=== PATIENT | female | born 1945 | race Hispanic/Latino ===

== ENCOUNTER 2020-09-29 09:24 | Observation (INO) | payer MEDICARE ==
--- NOTE | 2020-09-29 10:25 | Emergency Department Report ---
HPI - General Chief Complaint: Weakness Time Seen by Provider: 09/29/20 10:15 - HPI HPI: This is a 75-year-old female presents to the emergency department via EMS from home with the complaint of generalized weakness and fatigue, with some questionable altered mental status. The patient was diagnosed with shingles of the left side of her face on September 08. She was admitted to [facility] for a few days since it involved her eye and her ear. She has had a few visits to her primary care physician since that time with complaints of generally feeling ill, but they were told that it may take months for her to get back to normal. During her admission to [facility], the patient was also evaluated for a possible pacemaker, and was wearing a Holter monitor, secondary to some issues with hypotension and bradycardia. At that time they decided that it was not prudent to do a pacemaker. The patient has been told not to take any significant pain medications so she has just been taking Tylenol. The patient ambulates with a walker and sometimes uses a scooter to get around. However, usually she is awake, alert, energetic. She woke up this morning with increased weakness and fatigue. The patient says she does not know who called for EMS for her. She complains of a generalized headache. She denies any fever, chest umesh n, shortness of breath. ED Past Medical Hx - Past Medical History Previous Medical History?: Yes Additional medical history: hypotension - Social History Smoking Status: Never Smoker Substance Use Type: None ED Review of Systems ROS: Stated complaint: AMS/GENERAL WEAKNESS/SEPSIS Other details as noted in HPI Comment: Unobtainable due to pts medical conditions Constitutional: weakness Physical Exam - Physical Exam Vital Signs: Vital Signs 09/29/20 09:55 Temperature 97.5 F L Pulse Rate 64 Respiratory 11 L Rate Blood Pressure 117/66 O2 Sat by Pulse 98 Oximetry Physical Exam: GENERAL: The patient is ill-appearing. HENT: Normocephalic. Atraumatic. Patient has moist mucous membranes. EYES: Extraocular motions are intact. Pupils equal reactive to light bilaterally. No nystagmus. NECK: Supple. Trachea is midline. CHEST/LUNGS: Clear to auscultation. There is no respiratory distress noted. HEART/CARDIOVASCULAR: Regular. There is no tachycardia. There is no murmur. ABDOMEN: Abdomen is soft, nontender. Patient has normal bowel sounds. There is no abdominal distention. SKIN: Skin is warm and dry. NEURO: Patient is sleepy but easily arousable. Once awake she is AAO x3. No dysarthria or aphasia. Patient has bilateral upper extremity weakness with mild to moderate drift. MUSCULOSKELETAL: There is no tenderness or deformity. ED Course Vital Signs 09/29/20 09:55 Temperature 97.5 F L Pulse Rate 64 Respiratory 11 L Rate Blood Pressure 117/66 O2 Sat by Pulse 98 Oximetry ED Medical Decision Making - Lab Data Result diagrams: 09/29/20 10:43 09/29/20 10:43 - EKG Data -: EKG Interpreted by Nh EKG shows normal: sinus rhythm, axis (Left axis deviation), intervals, QRS complexes (Low voltage, Q waves to the septal leads), ST-T waves Rate: normal - EKG Data When compared to previous EKG there are: previous EKG unavailable Interpretation: other (Sinus rhythm at 66 bpm, left axis deviation, low voltage, Q waves in the septal leads. No ST elevation PA.) - Radiology Data Radiology results: report reviewed CT HEAD WITHOUT CONTRAST INDICATION / CLINICAL INFORMATION: Weakness. TECHNIQUE: All CT scans at this location are performed using CT dose reduction for ALARA by means of automated exposure control. COMPARISON: None available. FINDINGS: HEMORRHAGE: No evidence of intracranial hemorrhage or extra-axial fluid collection. EXTRA-AXIAL SPACES: Cortical sulci and sylvian fissures are within normal limits for the patient's age of 75 years. Basilar cisterns have an unremarkable appearance. VENTRICULAR SYSTEM: The third and lateral ventricles are within normal limits for size and configuration. CEREBRAL PARENCHYMA: Extensive periventricular, subcortical and deep white matter lucency is observed. This is probably secondary to advanced microvascular ischemic change. More focal areas of decreased brain parenchymal attenuation are likely secondary to remote small deep infarctions in a gangliocapsular distribution bilaterally. There is no indication of recent infarction. MIDLINE SHIFT OR HERNIATION: There is no mass effect. CEREBELLUM / BRAINSTEM: A low-attenuation focus in the left side of the david likely represents the sequelae of remote small deep pontine infarction. Brainstem has an otherwise unremarkable appearance. No cerebellar abnormalities are identified. MIDLINE STRUCTURES:Pituitary gland has an unremarkable appearance. No abnormalities are seen in the pineal region. INTRACRANIAL VESSELS:Calcified atherosclerotic plaque is present along the course of the cavernous segments of both internal carotid arteries. Similar findings are seen at the distal vertebral arteries. ORBITS: Status post bilateral cataract surgery. No additional abnormality. SOFT TISSUES of HEAD: No significant abnormality. CALVARIUM: Evaluation of bone windows reveals no abnormalities. PARANASAL SINUSES / MASTOID AIR CELLS: Paranasal sinuses are free from inflammatory mucosal disease. Mastoid air cells are normally pneumatized. IMPRESSION: 1. Advanced microvascular ischemic change. 2. Multiple remote small deep infarctions. 3. No acute intracranial abnormality. - Medical Decision Making This patient presents to the emergency department with some increased fatigue and generalized weakness. There is some questionable altered mental status. The patient is very sleepy but is easily arousable. Once awake she is able to answer orientation questions appropriately. She does display some bilateral upper extremity weakness but this may be effort based. For the same reason it is difficult to assess patient for any facial asymmetry. She has a recent history of herpes zoster of the face causing her left-sided facial pain and left ear pain. Patient was given some Tylenol and then later a dose of IV analgesia for this postherpetic neuralgia. CT scan of the head without contrast does not show any hemorrhage, large vessel occlusion, or any other acute process. The patient's labs have been mostly unremarkable except for a mild urinary tract infection. Telemedicine neurology was contacted and consulted and their recommendations are in the chart. The patient was given an NIH stroke scale of 5. They agree the patient is not a TPA candidate. They feel is more consistent with encephalopathy. They recommend admission for MRI and further evaluation. Patient was accepted for admission by the hospitalist, Dr. De Oliveira. Critical Care Time: No Critical care attestation.: If time is entered above; I have spent that time in minutes in the direct care of this critically ill patient, excluding procedure time. ED Disposition Clinical Impression: Encephalopathy, Weakness, Post herpetic neuralgia Disposition: OP ADMIT IP TO THIS HOSP Is pt being admited?: Yes Condition: Fair Time of Disposition: 13:11
[2020-09-29 10:54] LABS: Basophils # (Auto) 0.1 K/mm3 (0.0-0.1); Basophils % (Auto) 0.8 % (0.0-1.8); Eosinophils # (Auto) 0.2 K/mm3 (0.0-0.4); Eosinophils % (Auto) 2.1 % (0.0-4.3); Hematocrit 38.6 % (30.3-42.9); Hemoglobin 12.9 gm/dl (10.1-14.3); Lymphocytes # (Auto) 1.1 K/mm3 (1.2-5.4); Lymphocytes % (Auto) 13.7 % (13.4-35.0); Mean Corpuscular HGB Conc 34 % (30-34); Mean Corpuscular Volume 94 fl (79-97); Monocytes # (Auto) 0.6 K/mm3 (0.0-0.8); Monocytes % (Auto) 7.6 % (0.0-7.3); Platelet Count 187 K/mm3 (140-440); Red Blood Count 4.11 M/mm3 (3.65-5.03); Red Cell Distribution Width 16.2 % (13.2-15.2)
[2020-09-29 11:06] LABS: INR 1.05 (0.87-1.13)
[2020-09-29 11:17] LABS: Alanine Aminotransferase 6 units/L (7-56); Albumin 3.1 g/dL (3.9-5); BUN/Creatinine Ratio 14; Blood Urea Nitrogen 15 mg/dL (7-17); Calcium 9.3 mg/dL (8.4-10.2); Hemolysis Index 13
--- NOTE | 2020-09-29 11:24 | Cat Scan Report ---
CT HEAD WITHOUT CONTRAST INDICATION / CLINICAL INFORMATION: Weakness. TECHNIQUE: All CT scans at this location are performed using CT dose reduction for ALARA by means of automated e xposure control. COMPARISON: None available. FINDINGS: HEMORRHAGE: No evidence of intracranial hemorrhage or extra-axial fluid collection. EXTRA-AXIAL SPACES: Cortical sulci and sylvian fissures are within normal limits for the patient's ag e of 75 years. Basilar cisterns have an unremarkable appearance. VENTRICULAR SYSTEM: The third and lateral ventricles are within normal limits for size and configurat ion. CEREBRAL PARENCHYMA: Extensive periventricular, subcortical and deep white matter lucency is observed . This is probably secondary to advanced microvascular ischemic change. More focal areas of decreased brain parenchymal attenuation are likely secondary to remote small deep infarctions in a gangliocaps ular distribution bilaterally. There is no indication of recent infarction. MIDLINE SHIFT OR HERNIATION: There is no mass effect. CEREBELLUM / BRAINSTEM: A low-attenuation focus in the left side of the david likely represents the se quelae of remote small deep pontine infarction. Brainstem has an otherwise unremarkable appearance. N o cerebellar abnormalities are identified. MIDLINE STRUCTURES:Pituitary gland has an unremarkable appearance. No abnormalities are seen in the p ineal region. INTRACRANIAL VESSELS:Calcified atherosclerotic plaque is present along the course of the cavernous se gments of both internal carotid arteries. Similar findings are seen at the distal vertebral arteries. ORBITS: Status post bilateral cataract surgery. No additional abnormality. SOFT TISSUES of HEAD: No significant abnormality. CALVARIUM: Evaluation of bone windows reveals no abnormalities. PARANASAL SINUSES / MASTOID AIR CELLS: Paranasal sinuses are free from inflammatory mucosal disease. Mastoid air cells are normally pneumatized. IMPRESSION: 1. Advanced microvascular ischemic change. 2. Multiple remote small deep infarctions. 3. No acute intracranial abnormality. Signer Name: Jayce Lay MD Signed: 09/29/2020 11:19 AM Workstation Name: [id number]
[2020-09-29] MEDS ORDERED: SODIUM CHLORIDE 0.9% 1000 ML 1,000 ML IV ONE (11:26)
[2020-09-29] MEDS ORDERED: ACETAMINOPHEN 325 MG TAB PO ONE (11:26)
--- NOTE | 2020-09-29 12:35 | Consultation ---
History of Present Illness - Reason for Consult Consult date: 09/29/20 - History of Present Illness [facility] Consult Note # Demographics Consult Type: General Neurology Patient Location: Emergency Room First Name: Delores Last Name: Rosalio Date of : 1945 Age: 75 Gender: Female Time of Initial Page ( Time): 09/29/2020, 11:57 Time of Return Call ( Time): 09/29/2020, 11:58 # HPI History: 75yo woman who had recent zoster infection. She has had hypotension and bradycardia recently also. She had decreased responsiveness and slurred speech this morning on awakening. # Scores Time of exam and NIHSS ( Time): 09/29/2020, 12:16 Level of Consciousness 1a: [1] = Not alert; but arousable by minor stim LOC Questions 1b: [0] = Answers both questions correctly LOC Commands 1c: [0] = Performs both tasks correctly Best Gaze 2: [0] = Normal Visual 3: [0] = No visual loss Facial Palsy 4: [0] = Normal symmetrical movements Motor Arm Left 5a: [0] = No drift Motor Arm Right 5b: [0] = No drift Motor Leg Left 6a: [2] = Some effort against gravity Motor Leg Right 6b: [2] = Some effort against gravity Limb Ataxia 7: [0] = Absent Sensory 8: [0] = Normal Best Language 9: [0] = No aphasia Dysarthria 10: [0] = Normal Extinction and Inattention 11: [0] = No abnormality NIHSS Total: 5 # Exam Vitals: vital signs reviewed SBP: 120 DBP: 57 # Assessment Impression: 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 # Plan Labs: Ammonia B12 liver function tests TSH ua Imaging: (urgency: routine): MRI Brain with AND without contrast Diagnostic Test: EEG lumbar puncture: cell count, protein, glucose, as well as VZV PCR and HSV PCR Other: telemetry monitoring I have discussed my recommendations with the referring provider Disposition: admit Medications and Allergies Allergies Allergy/AdvReac Type Severity Reaction Status Date / Time No Known Allergies Allergy Unverified 09/29/20 09:44 Active Meds: Active Medications Sodium Chloride (Nacl 0.9% 1000 Ml) 1,000 mls @ 125 mls/hr IV ONCE ONE Stop: 09/29/20 19:25 Exam - Constitutional Vitals: Temp Pulse Resp BP Pulse Ox 97.5 F L 66 14 104/52 97 09/29/20 09:55 09/29/20 11:00 09/29/20 11:00 09/29/20 11:00 09/29/20 11:00 Results - Labs CBC & Chem 7: 09/29/20 10:43 09/29/20 10:43 Labs: Abnormal lab results 09/29/20 09/29/20 Range/Units 10:43 10:43 RDW 16.2 H (13.2-15.2) % [place] % (Auto) 7.6 H (0.0-7.3) % Lymph # (Auto) 1.1 L (1.2-5.4) K/mm3 Seg Neutrophils % 75.8 H (40.0-70.0) % Chloride 109.7 H (98-107) mmol/L Carbon Dioxide 18 L (22-30) mmol/L ALT 6 L (7-56) units/L Total Creatine Kinase 29 L (30-135) units/L Total Protein 5.9 L (6.3-8.2) g/dL Albumin 3.1 L (3.9-5) g/dL
[2020-09-29] MEDS ORDERED: MORPHINE 4 MG/1 ML INJ IV ONE (13:39)
[2020-09-29 14:03] LABS: Bilirubin,Urine NEG (Negative); Blood,Urine NEG (Negative); Color,Urine Amber (Yellow); Hyaline Casts,Urine 3 /LPF; Mucus,Urine FEW /HPF; Urobilinogen,Urine < 2.0 mg/dL (<2.0)
[2020-09-29] MEDS ORDERED: cefTRIAXone/NS 1 GM/50 ML 1 GM/50 ML BAG IV ONE (14:11)
--- NOTE | 2020-09-29 18:05 | Electrocardiograph Report ---
[facility] Test Date: 2020-09-29 Test Time: 11:22:48 Pat Name: MARLENA TRONCOSO Department: Room: [facility] Gender: F [employer] K[employer] Runner: HATTIE : 1945 Requested By: EKATERINA COLLIER Order Number: [id number] Reading MD: Pankaj Deng Measurements Intervals [place] Rate: 66 P: 45 IN: 164 QRS: -36 QRSD: 88 T: 31 QT: 459 QTc: 480 Interpretive Statements Sinus rhythm Left axis deviation Low voltage, precordial leads Consider anterior infarct No previous ECG available for comparison Electronically Signed On 09-29-2020 18:05:09 EDT by Pankaj Deng
--- NOTE | 2020-09-29 20:22 | History and Physical Report ---
History of Present Illness Date of examination: 09/29/20 Date of admission: 09/29/20 13:11 Chief complaint: Altered sensorium for 1 day History of present illness: 75-year-old female with recent history of shingles involving the left side of the face and requiring admission at [facility] comes in for continued pain on the left side of the face. Patient also had increased weakness and fatigue and altered sensorium because of which the daughter brought the patient to the hospital. Poor historian. No weakness in any of the 4 extremities. Main complaint is altered sensorium and generalized weakness. - Past Medical History Previous Medical History?: Yes Additional medical history: hypertension -Surgical history N/a -Family history hypertension - Social History Smoking Status: Never Smoker Substance Use Type: None Review of Systems ROS: Constitutional no weight loss or weight gain no fever or chills HEENT left facial pain present. Neck no neck stiffness no lymph gland enlargement Chest and lungs no shortness of breath cough or wheezing CVS no chest pain no diaphoresis no palpitations GI no nausea no vomiting no diarrhea Genitourinary system no dysuria no flank pain Musculoskeletal system no muscle pains no joint pains [employer] generalized weakness. Skin no rash no itching Psychiatric no depression no homicidal or suicidal tendencies Hematologic no lymphedema or bruising Endocrine no polydipsia no polyuria no cold intolerance no heat intolerance Medications and Allergies Allergies Allergy/AdvReac Type Severity Reaction Status Date / Time No Known Allergies Allergy Verified 09/29/20 20:34 Exam - Constitutional Vitals: Temp Pulse Resp BP Pulse Ox 97.5 F L 101 H 17 117/72 93 09/29/20 09:55 09/29/20 18:00 09/29/20 18:00 09/29/20 18:00 09/29/20 18:00 General appearance: Present: no acute distress, well-nourished - EENT Eyes: Present: PERRL ENT: hearing intact, clear oral mucosa, other (Left facial erythema present.) - Neck Neck: Present: supple, normal ROM - Respiratory Respiratory effort: normal Respiratory: bilateral: CTA - Cardiovascular Heart Sounds: Present: S1 & S2. Absent: rub, click - Extremities Extremities: pulses symmetrical, No edema Peripheral Pulses: within normal limits - Abdominal General gastrointestinal: Present: soft, non-tender, non-distended, normal bowel sounds Female genitourinary: Present: normal - Integumentary Integumentary: Present: clear, warm, dry - Musculoskeletal Musculoskeletal: gait normal, strength equal bilaterally - Psychiatric Psychiatric: appropriate mood/affect, intact judgment & insight - Neurologic Neurologic: CNII-XII intact, moves all extremities, other (No focal deficits.) HEART Score - HEART Score Troponin: Troponin T < 0.010 ng/mL (0.00-0.029) 09/29/20 10:43 Results - Labs CBC & Chem 7: 09/29/20 10:43 09/29/20 10:43 Labs: Laboratory Last Values WBC 7.8 K/mm3 (4.5-11.0) 09/29/20 10:43 RBC 4.11 M/mm3 (3.65-5.03) 09/29/20 10:43 Hgb 12.9 gm/dl (10.1-14.3) 09/29/20 10:43 Hct 38.6 % (30.3-42.9) 09/29/20 10:43 MCV 94 fl (79-97) 09/29/20 10:43 MCH 31 pg (28-32) 09/29/20 10:43 MCHC 34 % (30-34) 09/29/20 10:43 RDW 16.2 % (13.2-15.2) H 09/29/20 10:43 Plt Count 187 K/mm3 (140-440) 09/29/20 10:43 Lymph % (Auto) 13.7 % (13.4-35.0) 09/29/20 10:43 [place] % (Auto) 7.6 % (0.0-7.3) H 09/29/20 10:43 Eos % (Auto) 2.1 % (0.0-4.3) 09/29/20 10:43 Baso % (Auto) 0.8 % (0.0-1.8) 09/29/20 10:43 Lymph # (Auto) 1.1 K/mm3 (1.2-5.4) L 09/29/20 10:43 [place] # (Auto) 0.6 K/mm3 (0.0-0.8) 09/29/20 10:43 Eos # (Auto) 0.2 K/mm3 (0.0-0.4) 09/29/20 10:43 Baso # (Auto) 0.1 K/mm3 (0.0-0.1) 09/29/20 10:43 Seg Neutrophils % 75.8 % (40.0-70.0) H 09/29/20 10:43 Seg Neutrophils # 5.9 K/mm3 (1.8-7.7) 09/29/20 10:43 PT 14.2 Sec. (12.2-14.9) 09/29/20 10:43 INR 1.05 (0.87-1.13) 09/29/20 10:43 Sodium 143 mmol/L (137-145) 09/29/20 10:43 Potassium 4.0 mmol/L (3.6-5.0) 09/29/20 10:43 Chloride 109.7 mmol/L (98-107) H 09/29/20 10:43 Carbon Dioxide 18 mmol/L (22-30) L 09/29/20 10:43 Anion Gap 19 mmol/L 09/29/20 10:43 BUN 15 mg/dL (7-17) 09/29/20 10:43 Creatinine 1.1 mg/dL (0.6-1.2) 09/29/20 10:43 Estimated GFR 49 ml/min 09/29/20 10:43 BUN/Creatinine Ratio 14 % 09/29/20 10:43 Glucose 79 mg/dL (65-100) 09/29/20 10:43 Calcium 9.3 mg/dL (8.4-10.2) 09/29/20 10:43 Total Bilirubin 0.20 mg/dL (0.1-1.2) 09/29/20 10:43 AST 12 units/L (5-40) 09/29/20 10:43 ALT 6 units/L (7-56) L 09/29/20 10:43 Alkaline Phosphatase 83 units/L (35-129) 09/29/20 10:43 Ammonia 23.0 umol/L (25-60) L 09/29/20 17:23 Total Creatine Kinase 29 units/L (30-135) L 09/29/20 10:43 Troponin T < 0.010 ng/mL (0.00-0.029) 09/29/20 10:43 Total Protein 5.9 g/dL (6.3-8.2) L 09/29/20 10:43 Albumin 3.1 g/dL (3.9-5) L 09/29/20 10:43 Albumin/Globulin Ratio 1.1 % 09/29/20 10:43 TSH 1.440 mlU/mL (0.270-4.200) 09/29/20 10:43 Urine Color [place] (Yellow) 09/29/20 13:35 Urine Turbidity Clear (Clear) 09/29/20 13:35 Urine pH 5.0 (5.0-7.0) 09/29/20 13:35 Ur Specific [place] 1.028 (1.003-1.030) 09/29/20 13:35 Urine Protein 30 mg/dl mg/dL (Negative) 09/29/20 13:35 Urine Glucose (UA) Neg mg/dL (Negative) 09/29/20 13:35 Urine Ketones Tr mg/dL (Negative) 09/29/20 13:35 Urine Blood Neg (Negative) 09/29/20 13:35 Urine Nitrite Neg (Negative) 09/29/20 13:35 Urine Bilirubin Neg (Negative) 09/29/20 13:35 Urine Urobilinogen < 2.0 mg/dL (<2.0) 09/29/20 13:35 Ur Leukocyte Esterase Mod (Negative) 09/29/20 13:35 Urine WBC (Auto) 18.0 /HPF (0.0-6.0) H 09/29/20 13:35 Urine RBC (Auto) 1.0 /HPF (0.0-6.0) 09/29/20 13:35 U Epithel Cells (Auto) 1.0 /HPF (0-13.0) 09/29/20 13:35 Hyaline Casts 3 /LPF 09/29/20 13:35 Urine Mucus Few /HPF 09/29/20 13:35 - Imaging and Cardiology EKG: report reviewed Imaging and Cardiology: CT head Advanced microvascular ischemic change Assessment and Plan Advance Directives: Yes (Full code) VTE prophylaxis?: Chemical Plan of care discussed with patient/family: Yes - Patient Problems (1) Acute encephalopathy Current Visit: Yes Status: Acute Plan to address problem: Etiology unclear IV fluids MRI brain Discharge home tomorrow if MRI negative (2) Post herpetic neuralgia Current Visit: Yes Status: Acute Plan to address problem: Lyrica 75 twice daily (3) Hypertension Current Visit: Yes Status: Chronic Qualifiers: Hypertension type: primary hypertension Qualified Code(s): I10 - Essential (primary) hypertension Plan to address problem: Continue antihypertensives (4) Debility, unspecified Current Visit: Yes Status: Acute Plan to address problem: PT and OT consult requested (5) DVT prophylaxis Current Visit: Yes Status: Acute Plan to address problem: On heparin and GI prophylaxis
[2020-09-29] MEDS ORDERED: ACETAMINOPHEN 325 MG TAB PO PRN (20:26)
[2020-09-29] MEDS: HYDROmorphone 1 MG/1 ML INJ IV PRN (21:07)
[2020-09-29] MEDS: oxyCODONE /ACETAMINOPHEN 5-325MG TAB PO PRN (22:59)
[2020-09-30] MEDS: HYDROmorphone 1 MG/1 ML INJ IV PRN ×5 (01:01→17:29)
[2020-09-30] MEDS: HEPARIN 5,000 UNIT/1 ML VIAL SUB-Q SCH ×3 (01:07→21:41)
[2020-09-30] MEDS: METOCLOPRAMIDE 10 MG/2 ML INJ IV PRN (09:33)
--- NOTE | 2020-09-30 12:10 | Progress Note ---
Assessment and Plan - Patient Problems (1) Acute encephalopathy Current Visit: Yes Status: Acute Plan to address problem: Supportive care, MRI brain, (2) Postherpetic neuralgia Current Visit: Yes Status: Acute Plan to address problem: Pain control, supportive care. Steroid therapy. (3) Encephalopathy Current Visit: Yes Status: Acute Plan to address problem: Verbal prompting, verbal redirection, supportive care, CT head, patient MRI brain is pending, (4) DVT prophylaxis Current Visit: Yes Status: Acute Plan to address problem: SCD to bilateral lower extremities while in bed, patient is ambulatory History Interval history: 75 YO Female with Post Herpetic Neuralgia, Obesity, Vascular Dementia, Cerebral Atherosclerosis, Encephalopathy, who is currently pending MRI of the brain. No reported nursing events. Patient reports continued pain to her left face and left eye. Patient denies headache. Hospitalist Physical - Constitutional Vitals: Temp Pulse Resp BP Pulse Ox 98.3 F 110 H 20 117/66 94 09/30/20 11:57 09/30/20 11:57 09/30/20 11:57 09/30/20 11:57 09/30/20 11:57 General appearance: Present: no acute distress, well-nourished - EENT Eyes: Present: PERRL, EOM intact - Neck Neck: Present: supple - Respiratory Respiratory effort: normal Respiratory: bilateral: CTA - Cardiovascular Rhythm: regular Heart Sounds: Present: S1 & S2 - Extremities Extremities: no ischemia Peripheral Pulses: within normal limits - Abdominal General gastrointestinal: soft, non-tender, non-distended - Integumentary Integumentary: Present: clear, dry - Psychiatric Psychiatric: cooperative - Neurologic Neurologic: CNII-XII intact HEART Score - HEART Score Troponin: Troponin T < 0.010 ng/mL (0.00-0.029) 09/29/20 10:43 Results - Labs CBC & Chem 7: 09/30/20 19:57 09/30/20 19:57 Labs: Laboratory Last Values WBC 7.8 K/mm3 (4.5-11.0) 09/29/20 10:43 RBC 4.11 M/mm3 (3.65-5.03) 09/29/20 10:43 Hgb 12.9 gm/dl (10.1-14.3) 09/29/20 10:43 Hct 38.6 % (30.3-42.9) 09/29/20 10:43 MCV 94 fl (79-97) 09/29/20 10:43 MCH 31 pg (28-32) 09/29/20 10:43 MCHC 34 % (30-34) 09/29/20 10:43 RDW 16.2 % (13.2-15.2) H 09/29/20 10:43 Plt Count 187 K/mm3 (140-440) 09/29/20 10:43 Lymph % (Auto) 13.7 % (13.4-35.0) 09/29/20 10:43 [place] % (Auto) 7.6 % (0.0-7.3) H 09/29/20 10:43 Eos % (Auto) 2.1 % (0.0-4.3) 09/29/20 10:43 Baso % (Auto) 0.8 % (0.0-1.8) 09/29/20 10:43 Lymph # (Auto) 1.1 K/mm3 (1.2-5.4) L 09/29/20 10:43 [place] # (Auto) 0.6 K/mm3 (0.0-0.8) 09/29/20 10:43 Eos # (Auto) 0.2 K/mm3 (0.0-0.4) 09/29/20 10:43 Baso # (Auto) 0.1 K/mm3 (0.0-0.1) 09/29/20 10:43 Seg Neutrophils % 75.8 % (40.0-70.0) H 09/29/20 10:43 Seg Neutrophils # 5.9 K/mm3 (1.8-7.7) 09/29/20 10:43 PT 14.2 Sec. (12.2-14.9) 09/29/20 10:43 INR 1.05 (0.87-1.13) 09/29/20 10:43 Sodium 143 mmol/L (137-145) 09/29/20 10:43 Potassium 4.0 mmol/L (3.6-5.0) 09/29/20 10:43 Chloride 109.7 mmol/L (98-107) H 09/29/20 10:43 Carbon Dioxide 18 mmol/L (22-30) L 09/29/20 10:43 Anion Gap 19 mmol/L 09/29/20 10:43 BUN 15 mg/dL (7-17) 09/29/20 10:43 Creatinine 1.1 mg/dL (0.6-1.2) 09/29/20 10:43 Estimated GFR 49 ml/min 09/29/20 10:43 BUN/Creatinine Ratio 14 % 09/29/20 10:43 Glucose 79 mg/dL (65-100) 09/29/20 10:43 Calcium 9.3 mg/dL (8.4-10.2) 09/29/20 10:43 Total Bilirubin 0.20 mg/dL (0.1-1.2) 09/29/20 10:43 AST 12 units/L (5-40) 09/29/20 10:43 ALT 6 units/L (7-56) L 09/29/20 10:43 Alkaline Phosphatase 83 units/L (35-129) 09/29/20 10:43 Ammonia 23.0 umol/L (25-60) L 09/29/20 17:23 Total Creatine Kinase 29 units/L (30-135) L 09/29/20 10:43 Troponin T < 0.010 ng/mL (0.00-0.029) 09/29/20 10:43 Total Protein 5.9 g/dL (6.3-8.2) L 09/29/20 10:43 Albumin 3.1 g/dL (3.9-5) L 09/29/20 10:43 Albumin/Globulin Ratio 1.1 % 09/29/20 10:43 TSH 1.440 mlU/mL (0.270-4.200) 09/29/20 10:43 Urine Color Terrie (Yellow) 09/29/20 13:35 Urine Turbidity Clear (Clear) 09/29/20 13:35 Urine pH 5.0 (5.0-7.0) 09/29/20 13:35 Ur Specific [place] 1.028 (1.003-1.030) 09/29/20 13:35 Urine Protein 30 mg/dl mg/dL (Negative) 09/29/20 13:35 Urine Glucose (UA) Neg mg/dL (Negative) 09/29/20 13:35 Urine Ketones Tr mg/dL (Negative) 09/29/20 13:35 Urine Blood Neg (Negative) 09/29/20 13:35 Urine Nitrite Neg (Negative) 09/29/20 13:35 Urine Bilirubin Neg (Negative) 09/29/20 13:35 Urine Urobilinogen < 2.0 mg/dL (<2.0) 09/29/20 13:35 Ur Leukocyte Esterase Mod (Negative) 09/29/20 13:35 Urine WBC (Auto) 18.0 /HPF (0.0-6.0) H 09/29/20 13:35 Urine RBC (Auto) 1.0 /HPF (0.0-6.0) 09/29/20 13:35 U Epithel Cells (Auto) 1.0 /HPF (0-13.0) 09/29/20 13:35 Hyaline Casts 3 /LPF 09/29/20 13:35 Urine Mucus Few /HPF 09/29/20 13:35 [place]/IV: Voiding Method External Female Catheter Active Medications - Current Medications Current Medications: Generic Name Dose Route Start Last Admin Trade Name Freq PRN Reason Stop Dose Admin Acetaminophen 650 mg 09/29/20 20:26 Acetaminophen 325 Mg Tab PO Q4H PRN Pain MILD(1-3)/Fever >100.5/GARCIA Heparin Sodium (Porcine) 5,000 unit 09/29/20 22:00 09/30/20 09:30 Heparin 5,000 Unit/1 Ml Vial SUB-Q 5,000 unit Q12HR MCKENNA Administration Hydromorphone HCl 0.5 mg 09/29/20 20:26 09/30/20 09:30 Hydromorphone 1 Mg/1 Ml Inj IV 0.5 mg Q3H PRN Administration Pain , Severe (7-10) Sodium Chloride 1,000 mls @ 100 mls/hr 09/29/20 20:30 Nacl 0.9% 1000 Ml IV DIRECT MCKENNA Metoclopramide HCl 10 mg 09/29/20 20:26 09/30/20 09:33 Metoclopramide 10 Mg/2 Ml Inj IV 10 mg Q6H PRN Administration Nausea And Vomiting Ondansetron HCl 4 mg 09/29/20 20:26 Ondansetron 4 Mg/2 Ml Inj IV Q3H PRN Nausea And Vomiting Oxycodone/Acetaminophen 1 tab 09/29/20 20:26 09/29/20 22:59 Oxycodone /Acetaminophen 5-325mg Tab PO 1 tab Q6H PRN Administration Pain, Moderate (4-6) Sodium Chloride 10 ml 09/29/20 22:00 09/30/20 09:30 Sodium Chloride 0.9% 10 Ml Flush Syringe IV 10 ml BID MCKENNA Administration Sodium Chloride 10 ml 09/29/20 20:26 Sodium Chloride 0.9% 10 Ml Flush Syringe IV PRN PRN LINE FLUSH
[2020-09-30] MEDS: SODIUM CHLORIDE 0.9% 1000 ML 1,000 ML IV SCH (14:29)
[2020-09-30] MEDS ORDERED: diphenhydrAMINE 50 MG/ML VIAL IV ONE (17:30)
[2020-09-30 20:37] LABS: Alanine Aminotransferase 6 units/L (7-56); Albumin 3.1 g/dL (3.9-5); Blood Urea Nitrogen 8 mg/dL (7-17); Calcium 8.1 mg/dL (8.4-10.2); Hemolysis Index 12
[2020-09-30 20:54] LABS: Basophils % (Auto) 0.8 % (0.0-1.8); Eosinophils # (Auto) 0.2 K/mm3 (0.0-0.4); Eosinophils % (Auto) 3.8 % (0.0-4.3); Hematocrit 40.7 % (30.3-42.9); Lymphocytes # (Auto) 0.9 K/mm3 (1.2-5.4); Lymphocytes % (Auto) 17.1 % (13.4-35.0); Mean Corpuscular HGB Conc 32 % (30-34); Mean Corpuscular Volume 98 fl (79-97); Monocytes # (Auto) 0.5 K/mm3 (0.0-0.8); Platelet Count 167 K/mm3 (140-440); Red Blood Count 4.17 M/mm3 (3.65-5.03); Red Cell Distribution Width 16.7 % (13.2-15.2)
[2020-09-30 21:06] LABS: BUN/Creatinine Ratio 11
[2020-09-30] MEDS: oxyCODONE /ACETAMINOPHEN 5-325MG TAB PO PRN (21:40)
[2020-09-30] MEDS: diphenhydrAMINE 50 MG/ML VIAL IV PRN (21:41)
[2020-10-01] MEDS: oxyCODONE /ACETAMINOPHEN 5-325MG TAB PO PRN ×3 (02:45→23:28)
[2020-10-01] MEDS: ONDANSETRON 4 MG/2 ML INJ IV PRN ×2 (05:47→15:31)
[2020-10-01] MEDS: HYDROmorphone 1 MG/1 ML INJ IV PRN ×3 (09:05→19:46)
[2020-10-01] MEDS: HEPARIN 5,000 UNIT/1 ML VIAL SUB-Q SCH ×2 (09:06→21:49)
[2020-10-01] MEDS: diphenhydrAMINE 50 MG/ML VIAL IV PRN (09:11)
--- NOTE | 2020-10-01 13:47 | Progress Note ---
Assessment and Plan - Patient Problems (1) Acute encephalopathy Current Visit: Yes Status: Acute Plan to address problem: Supportive care, MRI brain, (2) Postherpetic neuralgia Current Visit: Yes Status: Acute Plan to address problem: Pain control, supportive care. Steroid therapy. (3) Encephalopathy Current Visit: Yes Status: Acute Plan to address problem: Verbal prompting, verbal redirection, supportive care, CT head, patient MRI brain is pending, (4) DVT prophylaxis Current Visit: Yes Status: Acute Plan to address problem: SCD to bilateral lower extremities while in bed, patient is ambulatory History Interval history: 75 YO Female with Post Herpetic Neuralgia, Obesity, Vascular Dementia, Cerebral Atherosclerosis, Encephalopathy, who is currently pending MRI of the brain. No reported nursing events. Patient reports continued pain to her left face and left eye. Patient denies headache. Hospitalist Physical - Constitutional Vitals: Temp Pulse Resp BP Pulse Ox 98.9 F 90 20 170/76 95 10/01/20 10:59 10/01/20 10:59 10/01/20 10:59 10/01/20 10:59 10/01/20 11:00 General appearance: Present: no acute distress, well-nourished - EENT Eyes: Present: PERRL, EOM intact - Neck Neck: Present: supple - Respiratory Respiratory effort: normal Respiratory: bilateral: CTA - Cardiovascular Rhythm: regular Heart Sounds: Present: S1 & S2 - Extremities Extremities: no ischemia Peripheral Pulses: within normal limits - Abdominal General gastrointestinal: soft, non-tender, non-distended - Integumentary Integumentary: Present: clear, dry - Psychiatric Psychiatric: cooperative - Neurologic Neurologic: CNII-XII intact HEART Score - HEART Score Troponin: Troponin T < 0.010 ng/mL (0.00-0.029) 09/29/20 10:43 Results - Labs CBC & Chem 7: 09/30/20 19:57 09/30/20 19:57 Labs: Laboratory Last Values WBC 5.3 K/mm3 (4.5-11.0) 09/30/20 19:57 RBC 4.17 M/mm3 (3.65-5.03) 09/30/20 19:57 Hgb 13.0 gm/dl (10.1-14.3) 09/30/20 19:57 Hct 40.7 % (30.3-42.9) 09/30/20 19:57 MCV 98 fl (79-97) H 09/30/20 19:57 MCH 31 pg (28-32) 09/30/20 19:57 MCHC 32 % (30-34) 09/30/20 19:57 RDW 16.7 % (13.2-15.2) H 09/30/20 19:57 Plt Count 167 K/mm3 (140-440) 09/30/20 19:57 Lymph % (Auto) 17.1 % (13.4-35.0) 09/30/20 19:57 [place] % (Auto) 10.0 % (0.0-7.3) H 09/30/20 19:57 Eos % (Auto) 3.8 % (0.0-4.3) 09/30/20 19:57 Baso % (Auto) 0.8 % (0.0-1.8) 09/30/20 19:57 Lymph # (Auto) 0.9 K/mm3 (1.2-5.4) L 09/30/20 19:57 [place] # (Auto) 0.5 K/mm3 (0.0-0.8) 09/30/20 19:57 Eos # (Auto) 0.2 K/mm3 (0.0-0.4) 09/30/20 19:57 Baso # (Auto) 0.0 K/mm3 (0.0-0.1) 09/30/20 19:57 Seg Neutrophils % 68.3 % (40.0-70.0) 09/30/20 19:57 Seg Neutrophils # 3.6 K/mm3 (1.8-7.7) 09/30/20 19:57 PT 14.2 Sec. (12.2-14.9) 09/29/20 10:43 INR 1.05 (0.87-1.13) 09/29/20 10:43 Sodium 140 mmol/L (137-145) 09/30/20 19:57 Potassium 4.1 mmol/L (3.6-5.0) 09/30/20 19:57 Chloride 109.3 mmol/L (98-107) H 09/30/20 19:57 Carbon Dioxide 20 mmol/L (22-30) L 09/30/20 19:57 Anion Gap 15 mmol/L 09/30/20 19:57 BUN 8 mg/dL (7-17) 09/30/20 19:57 Creatinine 0.7 mg/dL (0.6-1.2) 09/30/20 19:57 Estimated GFR > 60 ml/min 09/30/20 19:57 BUN/Creatinine Ratio 11 % 09/30/20 19:57 Glucose 78 mg/dL (65-100) 09/30/20 19:57 Hemoglobin A1c 5.3 % (4-6) 09/30/20 19:57 Calcium 8.1 mg/dL (8.4-10.2) L 09/30/20 19:57 Total Bilirubin 0.30 mg/dL (0.1-1.2) 09/30/20 19:57 AST 16 units/L (5-40) 09/30/20 19:57 ALT 6 units/L (7-56) L 09/30/20 19:57 Alkaline Phosphatase 81 units/L (35-129) 09/30/20 19:57 Ammonia 23.0 umol/L (25-60) L 09/29/20 17:23 Total Creatine Kinase 29 units/L (30-135) L 09/29/20 10:43 Troponin T < 0.010 ng/mL (0.00-0.029) 09/29/20 10:43 Total Protein 5.9 g/dL (6.3-8.2) L 09/30/20 19:57 Albumin 3.1 g/dL (3.9-5) L 09/30/20 19:57 Albumin/Globulin Ratio 1.1 % 09/30/20 19:57 TSH 1.440 mlU/mL (0.270-4.200) 09/29/20 10:43 Urine Color [place] (Yellow) 09/29/20 13:35 Urine Turbidity Clear (Clear) 09/29/20 13:35 Urine pH 5.0 (5.0-7.0) 09/29/20 13:35 Ur Specific [place] 1.028 (1.003-1.030) 09/29/20 13:35 Urine Protein 30 mg/dl mg/dL (Negative) 09/29/20 13:35 Urine Glucose (UA) Neg mg/dL (Negative) 09/29/20 13:35 Urine Ketones Tr mg/dL (Negative) 09/29/20 13:35 Urine Blood Neg (Negative) 09/29/20 13:35 Urine Nitrite Neg (Negative) 09/29/20 13:35 Urine Bilirubin Neg (Negative) 09/29/20 13:35 Urine Urobilinogen < 2.0 mg/dL (<2.0) 09/29/20 13:35 Ur Leukocyte Esterase Mod (Negative) 09/29/20 13:35 Urine WBC (Auto) 18.0 /HPF (0.0-6.0) H 09/29/20 13:35 Urine RBC (Auto) 1.0 /HPF (0.0-6.0) 09/29/20 13:35 U Epithel Cells (Auto) 1.0 /HPF (0-13.0) 09/29/20 13:35 Hyaline Casts 3 /LPF 09/29/20 13:35 Urine Mucus Few /HPF 09/29/20 13:35 Microbiology: Microbiology 09/29/20 13:35 Urine,Clean Catch Urine Culture - Preliminary [place]/IV: Voiding Method External Female Catheter Active Medications - Current Medications Current Medications: Generic Name Dose Route Start Last Admin Trade Name Freq PRN Reason Stop Dose Admin Acetaminophen 650 mg 09/29/20 20:26 Acetaminophen 325 Mg Tab PO Q4H PRN Pain MILD(1-3)/Fever >100.5/GARCIA Diphenhydramine HCl 25 mg 09/30/20 21:24 10/01/20 09:11 Diphenhydramine 50 Mg/Ml Vial IV 25 mg Q6H PRN Administration Itching Heparin Sodium (Porcine) 5,000 unit 09/29/20 22:00 10/01/20 09:06 Heparin 5,000 Unit/1 Ml Vial SUB-Q 5,000 unit Q12HR MCKENNA Administration Hydromorphone HCl 0.5 mg 09/29/20 20:26 10/01/20 09:05 Hydromorphone 1 Mg/1 Ml Inj IV 0.5 mg Q3H PRN Administration Pain , Severe (7-10) Sodium Chloride 1,000 mls @ 100 mls/hr 09/29/20 20:30 09/30/20 14:29 Nacl 0.9% 1000 Ml IV 100 mls/hr DIRECT MCKENNA Administration Metoclopramide HCl 10 mg 09/29/20 20:26 09/30/20 09:33 Metoclopramide 10 Mg/2 Ml Inj IV 10 mg Q6H PRN Administration Nausea And Vomiting Ondansetron HCl 4 mg 09/29/20 20:26 10/01/20 05:47 Ondansetron 4 Mg/2 Ml Inj IV 4 mg Q3H PRN Administration Nausea And Vomiting Oxycodone/Acetaminophen 1 tab 09/29/20 20:26 10/01/20 12:49 Oxycodone /Acetaminophen 5-325mg Tab PO 1 tab Q6H PRN Administration Pain, Moderate (4-6) Sodium Chloride 10 ml 09/29/20 22:00 10/01/20 09:08 Sodium Chloride 0.9% 10 Ml Flush Syringe IV 10 ml BID MCKENNA Administration Sodium Chloride 10 ml 09/29/20 20:26 Sodium Chloride 0.9% 10 Ml Flush Syringe IV PRN PRN LINE FLUSH
[2020-10-01] MEDS: SODIUM CHLORIDE 0.9% 1000 ML 1,000 ML IV SCH (15:39)
[2020-10-02] MEDS: HYDROmorphone 1 MG/1 ML INJ IV PRN ×4 (02:25→18:36)
[2020-10-02] MEDS: ONDANSETRON 4 MG/2 ML INJ IV PRN ×2 (02:28→14:35)
--- NOTE | 2020-10-02 10:40 | Progress Note ---
Assessment and Plan Assessment and plan: (1) Acute encephalopathy Supportive care, MRI brain still pending. (2) Postherpetic neuralgia Pain control, supportive care. Steroid therapy. (3) deconditioning/debility Physical therapy evaluated the patient and recommends subacute rehab. (4) DVT prophylaxis SCD to bilateral lower extremities while in bed, patient is ambulatory History Interval history: No new issues overnight. Hospitalist Physical - Constitutional Vitals: Temp Pulse Resp BP Pulse Ox 98.0 F 83 18 146/80 92 10/02/20 05:47 10/02/20 05:47 10/02/20 05:47 10/02/20 05:47 10/02/20 05:47 General appearance: Present: no acute distress, well-nourished - EENT Eyes: Present: PERRL, EOM intact ENT: hearing intact, clear oral mucosa, dentition normal - Neck Neck: Present: supple, normal ROM - Respiratory Respiratory effort: normal Respiratory: bilateral: CTA - Cardiovascular Rhythm: regular Heart Sounds: Present: S1 & S2. Absent: gallop, rub - Extremities Extremities: no ischemia, No edema, Full ROM - Abdominal General gastrointestinal: soft, non-tender, non-distended, normal bowel sounds - Integumentary Integumentary: Present: clear, warm, dry - Neurologic Neurologic: CNII-XII intact, moves all extremities HEART Score - HEART Score Troponin: Troponin T < 0.010 ng/mL (0.00-0.029) 09/29/20 10:43 Results - Labs CBC & Chem 7: 09/30/20 19:57 09/30/20 19:57 Labs: Laboratory Last Values WBC 5.3 K/mm3 (4.5-11.0) 09/30/20 19:57 RBC 4.17 M/mm3 (3.65-5.03) 09/30/20 19:57 Hgb 13.0 gm/dl (10.1-14.3) 09/30/20 19:57 Hct 40.7 % (30.3-42.9) 09/30/20 19:57 MCV 98 fl (79-97) H 09/30/20 19:57 MCH 31 pg (28-32) 09/30/20 19:57 MCHC 32 % (30-34) 09/30/20 19:57 RDW 16.7 % (13.2-15.2) H 09/30/20 19:57 Plt Count 167 K/mm3 (140-440) 09/30/20 19:57 Lymph % (Auto) 17.1 % (13.4-35.0) 09/30/20 19:57 [place] % (Auto) 10.0 % (0.0-7.3) H 09/30/20 19:57 Eos % (Auto) 3.8 % (0.0-4.3) 09/30/20 19:57 Baso % (Auto) 0.8 % (0.0-1.8) 09/30/20 19:57 Lymph # (Auto) 0.9 K/mm3 (1.2-5.4) L 09/30/20 19:57 [place] # (Auto) 0.5 K/mm3 (0.0-0.8) 09/30/20 19:57 Eos # (Auto) 0.2 K/mm3 (0.0-0.4) 09/30/20 19:57 Baso # (Auto) 0.0 K/mm3 (0.0-0.1) 09/30/20 19:57 Seg Neutrophils % 68.3 % (40.0-70.0) 09/30/20 19:57 Seg Neutrophils # 3.6 K/mm3 (1.8-7.7) 09/30/20 19:57 PT 14.2 Sec. (12.2-14.9) 09/29/20 10:43 INR 1.05 (0.87-1.13) 09/29/20 10:43 Sodium 140 mmol/L (137-145) 09/30/20 19:57 Potassium 4.1 mmol/L (3.6-5.0) 09/30/20 19:57 Chloride 109.3 mmol/L (98-107) H 09/30/20 19:57 Carbon Dioxide 20 mmol/L (22-30) L 09/30/20 19:57 Anion Gap 15 mmol/L 09/30/20 19:57 BUN 8 mg/dL (7-17) 09/30/20 19:57 Creatinine 0.7 mg/dL (0.6-1.2) 09/30/20 19:57 Estimated GFR > 60 ml/min 09/30/20 19:57 BUN/Creatinine Ratio 11 % 09/30/20 19:57 Glucose 78 mg/dL (65-100) 09/30/20 19:57 Hemoglobin A1c 5.3 % (4-6) 09/30/20 19:57 Calcium 8.1 mg/dL (8.4-10.2) L 09/30/20 19:57 Total Bilirubin 0.30 mg/dL (0.1-1.2) 09/30/20 19:57 AST 16 units/L (5-40) 09/30/20 19:57 ALT 6 units/L (7-56) L 09/30/20 19:57 Alkaline Phosphatase 81 units/L (35-129) 09/30/20 19:57 Ammonia 23.0 umol/L (25-60) L 09/29/20 17:23 Total Creatine Kinase 29 units/L (30-135) L 09/29/20 10:43 Troponin T < 0.010 ng/mL (0.00-0.029) 09/29/20 10:43 Total Protein 5.9 g/dL (6.3-8.2) L 09/30/20 19:57 Albumin 3.1 g/dL (3.9-5) L 09/30/20 19:57 Albumin/Globulin Ratio 1.1 % 09/30/20 19:57 TSH 1.440 mlU/mL (0.270-4.200) 09/29/20 10:43 Urine Color [place] (Yellow) 09/29/20 13:35 Urine Turbidity Clear (Clear) 09/29/20 13:35 Urine pH 5.0 (5.0-7.0) 09/29/20 13:35 Ur Specific [place] 1.028 (1.003-1.030) 09/29/20 13:35 Urine Protein 30 mg/dl mg/dL (Negative) 09/29/20 13:35 Urine Glucose (UA) Neg mg/dL (Negative) 09/29/20 13:35 Urine Ketones Tr mg/dL (Negative) 09/29/20 13:35 Urine Blood Neg (Negative) 09/29/20 13:35 Urine Nitrite Neg (Negative) 09/29/20 13:35 Urine Bilirubin Neg (Negative) 09/29/20 13:35 Urine Urobilinogen < 2.0 mg/dL (<2.0) 09/29/20 13:35 Ur Leukocyte Esterase Mod (Negative) 09/29/20 13:35 Urine WBC (Auto) 18.0 /HPF (0.0-6.0) H 09/29/20 13:35 Urine RBC (Auto) 1.0 /HPF (0.0-6.0) 09/29/20 13:35 U Epithel Cells (Auto) 1.0 /HPF (0-13.0) 09/29/20 13:35 Hyaline Casts 3 /LPF 09/29/20 13:35 Urine Mucus Few /HPF 09/29/20 13:35 Microbiology: Microbiology 09/29/20 13:35 Urine,Clean Catch Urine Culture - Final [place]/IV: Voiding Method Toilet Active Medications - Current Medications Current Medications: Generic Name Dose Route Start Last Admin Trade Name Freq PRN Reason Stop Dose Admin Acetaminophen 650 mg 09/29/20 20:26 Acetaminophen 325 Mg Tab PO Q4H PRN Pain MILD(1-3)/Fever >100.5/GARCIA Diphenhydramine HCl 25 mg 09/30/20 21:24 10/01/20 09:11 Diphenhydramine 50 Mg/Ml Vial IV 25 mg Q6H PRN Administration Itching Heparin Sodium (Porcine) 5,000 unit 09/29/20 22:00 10/01/20 21:49 Heparin 5,000 Unit/1 Ml Vial SUB-Q 5,000 unit Q12HR MCKENNA Administration Hydromorphone HCl 0.5 mg 09/29/20 20:26 10/02/20 08:11 Hydromorphone 1 Mg/1 Ml Inj IV 0.5 mg Q3H PRN Administration Pain , Severe (7-10) Sodium Chloride 1,000 mls @ 100 mls/hr 09/29/20 20:30 10/02/20 02:25 Nacl 0.9% 1000 Ml IV Infused DIRECT MCKENNA Infusion Metoclopramide HCl 10 mg 09/29/20 20:26 09/30/20 09:33 Metoclopramide 10 Mg/2 Ml Inj IV 10 mg Q6H PRN Administration Nausea And Vomiting Ondansetron HCl 4 mg 09/29/20 20:26 10/02/20 02:28 Ondansetron 4 Mg/2 Ml Inj IV 4 mg Q3H PRN Administration Nausea And Vomiting Oxycodone/Acetaminophen 1 tab 09/29/20 20:26 10/01/20 23:28 Oxycodone /Acetaminophen 5-325mg Tab PO 1 tab Q6H PRN Administration Pain, Moderate (4-6) Prednisone 40 mg 10/02/20 10:00 Prednisone 20 Mg Tab PO 10/02/20 23:59 QDAY MCKENNA Sodium Chloride 10 ml 09/29/20 22:00 10/01/20 21:49 Sodium Chloride 0.9% 10 Ml Flush Syringe IV 10 ml BID MCKENNA Administration Sodium Chloride 10 ml 09/29/20 20:26 Sodium Chloride 0.9% 10 Ml Flush Syringe IV PRN PRN LINE FLUSH
[2020-10-02] MEDS: predniSONE 20 MG TAB PO SCH (11:16)
[2020-10-02] MEDS: HEPARIN 5,000 UNIT/1 ML VIAL SUB-Q SCH ×2 (11:16→21:48)
--- NOTE | 2020-10-02 12:15 | Magnetic Resonance Report ---
MRI BRAIN 10/02/2020 INDICATION / CLINICAL INFORMATION: severe debility, bilat.. leg weakness. TECHNIQUE: Multiplanar, multisequence MR images of the brain were obtained. COMPARISON: None available. FINDINGS: BRAIN / INTRACRANIAL CONTENTS: Unenhanced MR images of the brain demonstrate no evidence of acute abn ormality. Ventricles and sulci are normal in size and shape for a patient of this age. Extensive chronic appearing white matter T2 weighted hyperintensities are present scattered throughou t the cerebral hemispheric white matter, consistent with extensive chronic small vessel ischemic velazquez ge. There is no evidence of acute ischemic injury, hemorrhage, or mass. There are no abnormal extra-axial fluid collections. EXTRACRANIAL: Unremarkable CRANIOCERVICAL JUNCTION: No significant abnormality. VASCULAR FLOW-VOIDS: No significant abnormality. Incidental note is made of mucosal thickening in left mastoid air cells and middle ear. IMPRESSION: No acute abnormality. Extensive chronic white matter microangiopathic change. Signer Name: Binh Eldridge MD Signed: 10/02/2020 12:10 PM Workstation Name: [id number]
[2020-10-02] MEDS: SODIUM CHLORIDE 0.9% 1000 ML 1,000 ML IV SCH (18:39)
[2020-10-03] MEDS: HYDROmorphone 1 MG/1 ML INJ IV PRN ×3 (05:48→22:11)
[2020-10-03] MEDS ORDERED: hydrALAZINE 20 MG/1 ML INJ IV ONE (05:52)
[2020-10-03] MEDS: METOCLOPRAMIDE 10 MG/2 ML INJ IV PRN (07:28)
[2020-10-03] MEDS: HEPARIN 5,000 UNIT/1 ML VIAL SUB-Q SCH ×2 (11:08→22:10)
[2020-10-03] MEDS: predniSONE 20 MG TAB PO SCH (11:08)
--- NOTE | 2020-10-03 13:45 | Progress Note ---
Assessment and Plan #1 acute encephalopathy most likely secondary to pain of postherpetic neuralgia and postherpetic neuralgia itself. No evidence of meningitis. MRI evaluated unremarkable. CT scan head unremarkable. #2 eye pain secondary to postherpetic neuralgia it appears dry. There are some crusted lesions still there. We will add eyedrop to help soothe patient's eye. #3 posterior pressure neuralgia still has significant redness swelling pain in the face. We will continue to treat aggressively with pain control supportive care. Has received steroids and antiretrovirals. #4 debility-PT suggest halfway facility. Family would like patient to come home and patient also wants to return home. Was sent home with physical therapy. Subjective Date of service: 10/03/20 Principal diagnosis: Encephalopathy Interval history: Patient seems to be doing a bit better today. No longer encephalopathic. Patient complains today of high discomfort which she has had prior to admission and ear itching as well. Most likely she has the pain from postherpetic neuralgia is was bothering her. I did have long discussion with the daughter Aleshia and she would like patient to come home instead of halfway facility. And if patient does well tomorrow we can discharge her home anticipated in the a.m. Objective - Constitutional Vitals: Vital Signs - 12hr 10/03/20 10/03/20 10/03/20 05:10 05:48 06:18 Temperature 98.6 F Pulse Rate 91 H Respiratory 18 17 17 Rate Blood Pressure 170/82 O2 Sat by Pulse 93 Oximetry 10/03/20 10/03/20 10/03/20 06:55 07:31 08:40 Temperature 99.0 F Pulse Rate 86 96 H Respiratory 16 Rate Blood Pressure 173/87 155/77 O2 Sat by Pulse 97 97 Oximetry General appearance: Present: no acute distress, well-nourished - EENT Eyes: PERRL, EOM intact ENT: hearing intact, clear oral mucosa, other (Facial redness bilaterally slight patient not able to close left eye as well) Ears: bilateral: normal - Neck Neck: supple, normal ROM - Respiratory Respiratory effort: normal Respiratory: bilateral: CTA - Breasts Breasts: normal - Cardiovascular Rhythm: regular Heart Sounds: Present: S1 & S2. Absent: gallop, rub Extremities: pulses intact, No edema, normal color, Full ROM - Gastrointestinal General gastrointestinal: Present: soft, non-tender, non-distended, normal bowel sounds - Genitourinary Female genitourinary: normal - Integumentary Integumentary: clear, warm, dry - Musculoskeletal Musculoskeletal: 1, strength equal bilaterally - Neurologic Neurologic: moves all extremities - Psychiatric Psychiatric: memory intact, appropriate mood/affect, intact judgment & insight - Labs CBC & Chem 7: 09/30/20 19:57 09/30/20 19:57 HEART Score - HEART Score Troponin: Troponin T < 0.010 ng/mL (0.00-0.029) 09/29/20 10:43
[2020-10-03] MEDS: ONDANSETRON 4 MG/2 ML INJ IV PRN (14:20)
[2020-10-03] MEDS: diphenhydrAMINE 50 MG/ML VIAL IV PRN ×2 (16:04→23:05)
[2020-10-03] MEDS: HYPROMELLOSE 0.5% OPHTH SOLN 15 ML OU PRN (22:21)
[2020-10-04] MEDS: HYDROmorphone 1 MG/1 ML INJ IV PRN ×2 (04:01→17:29)
--- NOTE | 2020-10-04 07:55 | Discharge Summary ---
Providers - Providers Date of Admission: 09/29/20 13:11 Date of discharge: 10/04/20 Attending physician: KRISTINE SARAVIA 09/29/20 20:31 Physical Therapy Evaluation and Treat [CONS] Routine Comment: Reason For Exam: debility Primary care physician: SERVICE OPERATOR Hospitalization Condition: Fair Pertinent studies: CT scan of head unremarkable. MRI of brain extensive white matter disease otherwise unremarkable. Hospital course: 75-year-old female with a history of postherpetic neuralgia, coronary artery disease, vascular dementia presented with an episode of acute encephalopathy. Work-up was essentially unremarkable. Laboratory studies were normal. Encephalopathy corrected immediately. MRI unremarkable CT scan unremarkable. Etiology appeared to be secondary to pain from postherpetic neuralgia in the ear and eye. Patient has ophthalmology appointment set up for Friday. Patient was seen by primary care physician as well and thought she need to see ophthalmology as well. Spoke with daughter about patient going to custodial facility. Daughter and patient would like to go home. Physical therapy evaluation suggest patient may benefit from further rehab. Patient would like to do rehab at home and was sent home with PT. Patient also suggest follow-up appointment with ophthalmology and I did speak with daughter Aleshia about this in detail. Disposition: DC-01 TO HOME OR SELFCARE Final Discharge Diagnosis (Prints w/discharge instructions): Acute encephalopathy - Discharge Diagnoses (1) Acute encephalopathy Status: Acute (2) Debility, unspecified Status: Acute (3) Encephalopathy Status: Acute (4) Post herpetic neuralgia Status: Acute (5) Hypertension Status: Chronic Qualifiers: Hypertension type: primary hypertension Qualified Code(s): I10 - Essential (primary) hypertension Core Measure Documentation - Palliative Care Palliative Care/ Comfort Measures: Not Applicable - Core Measures Any of the following diagnoses?: none Exam - Constitutional Vitals: Temp Pulse Resp BP Pulse Ox 98.1 F 80 16 159/78 92 10/04/20 04:44 10/04/20 04:44 10/04/20 04:44 10/04/20 04:44 10/04/20 04:44 General appearance: Present: no acute distress, well-nourished - EENT Eyes: Present: PERRL ENT: hearing intact, clear oral mucosa, other (Redness up on left side of face. Unable to close eye fully.) - Neck Neck: Present: supple, normal ROM - Respiratory Respiratory effort: normal Respiratory: bilateral: CTA - Cardiovascular Heart Sounds: Present: S1 & S2. Absent: rub, click - Extremities Extremities: pulses symmetrical, No edema Peripheral Pulses: within normal limits - Abdominal General gastrointestinal: Present: soft, non-tender, non-distended, normal bowel sounds Female genitourinary: Present: normal - Integumentary Integumentary: Present: clear, warm, dry - Musculoskeletal Musculoskeletal: gait normal, strength equal bilaterally - Psychiatric Psychiatric: appropriate mood/affect, intact judgment & insight - Neurologic Neurologic: CNII-XII intact, moves all extremities Plan Activity: up only with assistance Weight Bearing Status: Weight Bear as Tolerated Special Instructions: physical therapy, home health RN Follow up with: PRIMARY CARE,MD [Primary Care Provider] - 7 Days Prescriptions: predniSONE [Deltasone] 40 mg PO QDAY #7 tablet Hypromellose [Isopto Tears 0.5%] 2 drops OU Q4H PRN #1 bottle PRN Reason: Dry Eye(S) oxyCODONE /ACETAMINOPHEN [Percocet 5/325 mg] 1 tab PO Q6H PRN #14 tablet PRN Reason: Pain, Moderate (4-6)
[2020-10-04] MEDS ORDERED: diphenhydrAMINE 25 MG/10 ML ORAL LIQUID PO NR (09:53)
[2020-10-04] MEDS: predniSONE 20 MG TAB PO SCH (10:30)
[2020-10-04] MEDS: HYPROMELLOSE 0.5% OPHTH SOLN 15 ML OU PRN (11:49)
[2020-10-04] MEDS: oxyCODONE /ACETAMINOPHEN 5-325MG TAB PO PRN (11:51)
[2020-10-04] MEDS: diphenhydrAMINE 50 MG/ML VIAL IV PRN (11:56)
[2020-10-04] MEDS: HEPARIN 5,000 UNIT/1 ML VIAL SUB-Q SCH (11:58)
[2020-10-04 17:33] VITALS: BP 167/87
== END 2020-10-04 18:45 | disposition home or self-care (01) ==
LOC: ED 09:24 → INTOOBSV 13:11 → 3A 13:11 → 3B-SURG 21:43
PROVIDERS: ADMIT Internal Medicine; ATTEND Internal Medicine
DX: G93.40 Encephalopathy, unspecified (principal); Z20.822 Contact with and (suspected) exposure to COVID-19; I10 Essential (primary) hypertension; B02.29 Other postherpetic nervous system involvement; R53.81 Other malaise; I95.9 Hypotension, unspecified; M25.50 Pain in unspecified joint; R29.898 Other symptoms and signs involving the musculoskeletal system
CPT/HCPCS: 36415; 70450; 70551; 80053; 81001; 82140; 82550; 83036; 84443; 84484; 85025; 85610; 87086; 93005; 96361; 96365; 96372; 96375; 96376; 97110; 97116; 97163; 99285; G0378; J0360; J0696; J1170; J1200; J1644; J2270; J2405; J2765; J7030; J7512; U0003